=== PATIENT | female | born 1960 | race Caucasian/White ===

== ENCOUNTER 2017-07-20 05:52 | Emergency (ER) | payer OTHER ==
--- NOTE | 2017-07-20 07:27 | ER Document Report ---
HPI - HPI Patient complains to provider of: low back pain Onset: Other - 2 wweks Quality of pain: Achy, Throbbing Pain Level: 4 Context: 57 yo female c/o right SI joint back pain which is worse from the long road trips. No fever. No iv durg use. No saddle anesthesia or radiculopathy Associated Symptoms: None Exacerbated by: Walking Relieved by: Denies Similar symptoms previously: Yes Recently seen / treated by doctor: No - ROS ROS below otherwise negative: Yes Systems Reviewed and Negative: Yes All other systems reviewed and negative Past Medical History - General Information source: Patient - Social History Smoking Status: Never Smoker Frequency of alcohol use: None Drug Abuse: None Lives with: Spouse/Significant other Family History: Reviewed & Not Pertinent Patient has suicidal ideation: No Patient has homicidal ideation: No - Medical History Medical History: Negative Renal/ Medical History: Denies: Hx Peritoneal Dialysis Surgical Hx: Negative Vertical Provider Document - CONSTITUTIONAL Agree With Documented VS: Yes Exam Limitations: No Limitations General Appearance: No Apparent Distress - HEENT HEENT: Normocephalic - NECK Neck: Supple - RESPIRATORY Respiratory: Breath Sounds Normal, No Respiratory Distress O2 Sat by Pulse Oximetry: 98 - CARDIOVASCULAR Cardiovascular: Regular Rate, Regular Rhythm - MUSCULOSKELETAL/EXTREMETIES Musculoskeletal/Extremeties: MAEW, FROM, Tender - Right SI joint - NEURO Level of Consciousness: Awake Deep Tendon Reflexes: 2+ - tarik ankle and patellar - DERM Integumentary: Warm, Dry, No Rash Course - Vital Signs Vital signs: Temp Pulse Resp BP Pulse Ox 97.8 F 69 18 133/82 H 98 07/20/17 05:54 07/20/17 05:54 07/20/17 05:54 07/20/17 05:54 07/20/17 05:54 Discharge - Discharge Clinical Impression: Right sacroiliitis Condition: Good Disposition: HOME, SELF-CARE Instructions: Acetaminophen, Chiropractor, Use of [id number]-[id number] Ibuprofen ( [facility]), Ice Packs ([facility]), Low Back Pain ([facility]), Muscle Relaxers ([facility]), Muscle Strain ([facility]), Warm Packs ([facility]) Additional Instructions: see chiropractor to er if worse stretches as discussed Prescriptions: Cyclobenzaprine HCl [Flexeril 10 Mg Tablet] 10 mg PO TIDP PRN #20 tablet PRN Reason: Referrals: AXEL BARRIGA DC [CHIROPRACTOR] - Follow up as needed
[2017-07-20] MEDS ORDERED: IBUPROFEN 800 MG TABLET PO ONE (08:59)
[2017-07-20] MEDS ORDERED: ACETAMINOPHEN 325 MG TABLET PO ONE (08:59)
[2017-07-20 09:14] VITALS: BP 130/81
== END 2017-07-20 09:15 | disposition home or self-care (01) ==
LOC: ER 05:52
DX: M46.1 Sacroiliitis, not elsewhere classified (principal)
CPT/HCPCS: 99283